=== PATIENT | male | born 1990 | race Caucasian/White ===

== ENCOUNTER → 2023-09-14 | Outpatient (REF) | payer OTHER ==
[2023-09-14 13:37] LABS: BASO # 0.1 10^3/uL (0.0-0.2); BASO % 1.2 % (0.0-1.0); EOS # 0.2 10^3/uL (0.0-0.5); EOS % 3.6 % (0.0-3.0); HEMATOCRIT 47.8 % (42.0-52.0); HEMOGLOBIN 16.2 g/dl (13.5-17.5); LYMPH % 30.1 % (24.0-44.0); MEAN CORPUSCULAR HEMOGLOBIN 29.1 pg (27.0-33.0); MEAN CORPUSCULAR HGB CONC 33.9 g/dl (32.0-36.5); MONO # 0.7 10^3/uL (0.0-0.8); NEUTROPHILS # 3.6 10^3/uL (1.5-8.5); NEUTROPHILS % 54.4 % (36.0-66.0); PLATELET COUNT, AUTOMATED 264 10^3/uL (150-450); RED BLOOD COUNT 5.56 10^6/uL (4.30-6.10); WHITE BLOOD COUNT 6.7 10^3/uL (4.0-10.0)
[2023-09-14 13:53] LABS: TOTAL 25(OH) VITAMIN D 27.8 NG/ML (20.0-100.0)
[2023-09-14 13:54] LABS: ALBUMIN 3.7 G/DL (3.2-5.2); ALKALINE PHOSPHATASE 94 U/L (46-116); ALT/SGPT 29 U/L (7.0-40); AST/SGOT 18 U/L (<34); BILIRUBIN,TOTAL 0.2 MG/DL (0.3-1.2); BLOOD UREA NITROGEN 18 MG/DL (9-23); CALCIUM LEVEL 9.2 MG/DL (8.5-10.1); CARBON DIOXIDE LEVEL 28 MMOL/L (20-31); CHLORIDE LEVEL 110 MMOL/L (98-107); CHOLESTEROL LEVEL 138 MG/DL (<200); CHOLESTEROL RISK RATIO 3.87 (<5); CREATININE FOR GFR 0.93 MG/DL (0.70-1.30); GLOMERULAR FILTRATION RATE > 60.0 (>60); GLUCOSE, FASTING 104 MG/DL (60-100); HDL CHOLESTEROL 35.6 MG/DL (>40); LDL CHOLESTEROL 77.8 MG/DL (<100); NON-HDL-C 102.4 MG/DL; POTASSIUM SERUM 4.7 MMOL/L (3.5-5.1); SODIUM LEVEL 142 MMOL/L (136-145); THYROID STIMULATING HORMONE 1.362 uIU/ML (0.55-4.78); TOTAL PROTEIN 6.7 G/DL (5.7-8.2); TRIGLYCERIDES LEVEL 123 MG/DL (<150)
== END ==
LOC: M LAB REF 13:12
PROVIDERS: ATTEND Nurse Practitioner Family
DX: E66.9 Obesity, unspecified (principal); E55.9 Vitamin D deficiency, unspecified

== ENCOUNTER 2025-03-23 15:14 | Day surgery (SDC) | payer OTHER ==
[~2025-03-23] VITALS: Ht 180.3 cm; Wt 108.6 kg
[2025-03-23] MEDS ORDERED: ROCURONIUM BROMIDE 50MG/5ML VIAL As Ordered ONE (17:45)
[2025-03-23] MEDS ORDERED: LIDOCAINE 2% 100 MG/5 ML SDV (FOR ANES.) As Ordered ONE (17:45)
[2025-03-23] MEDS ORDERED: MIDAZOLAM INJ 2 MG/2 ML VIAL As Ordered ONE (17:46)
[2025-03-23] MEDS ORDERED: ONDANSETRON 4MG/2ML VIAL As Ordered ONE (18:08)
[2025-03-23] MEDS ORDERED: dexAMETHasone 4 MG/ML 1 ML VIAL As Ordered ONE (18:08)
[2025-03-23] MEDS ORDERED: ACETAMINOPHEN 1000MG/100ML IV BAG As Ordered ONE (18:12)
[2025-03-23] MEDS ORDERED: SUGAMMADEX SODIUM 200 MG/2 ML VIAL As Ordered ONE (18:59)
[2025-03-23] MEDS ORDERED: KETOROLAC 30 MG/ML 1 ML VIAL As Ordered ONE (18:59)
[2025-03-23] MEDS ORDERED: MORPHINE 4 MG/ML 1 ML VIAL IV PRN ×2 (19:30)
[2025-03-23] MEDS ORDERED: MORPHINE 2 MG/ML 1 ML VIAL IV PRN (19:30)
[2025-03-23] MEDS ORDERED: ONDANSETRON 4MG TAB PO PRN (19:30)
[2025-03-23 20:00] VITALS: BP 116/73; TEMP 98.7; O2SAT 95
[2025-03-23] MEDS: NS (Normal Saline) 0.9% 1,000 ML IV SCH (20:25)
[2025-03-23] MEDS: PIPERACILLIN/TAZOBACTAM SOD 3.375 GM in DEXTROSE 5% (D5W) ADV/MINI-BAG 50 ML IV SCH (20:27)
[2025-03-23 20:30] VITALS: BP 120/67; TEMP 98.7; O2SAT 93
[2025-03-23 21:00] VITALS: BP 110/64; TEMP 98.6; O2SAT 93
[2025-03-23 22:00] VITALS: BP 114/67; TEMP 98.1; O2SAT 94
[2025-03-23 23:00] VITALS: BP 104/55; TEMP 97.5; O2SAT 95
[2025-03-24] VITALS: BP 94/50; TEMP 97.6; O2SAT 95
[2025-03-24 01:00] VITALS: BP 111/60; TEMP 98.2; O2SAT 95
[2025-03-24] MEDS: KETOROLAC 30 MG/ML 1 ML VIAL IV SCH (01:19)
[2025-03-24 04:00] VITALS: BP 95/56; TEMP 98.1; O2SAT 95
[2025-03-24 07:21] VITALS: BP 110/57; TEMP 97.6; O2SAT 98
[2025-03-24 08:05] VITALS: BP 110/57; TEMP 97.6; O2SAT 98
[2025-03-24] MEDS ORDERED: AUGM500T34 PO (10:26)
[2025-03-24 11:49] VITALS: BP 111/59; TEMP 97.8; O2SAT 98
== END 2025-03-24 12:32 | disposition home or self-care (01) ==
LOC: M SDC 15:14 → UNDOADMIN 16:07 → M OR 16:07 → M MS4PR 19:59 → UNDODISIN 03-24 12:32 → M SDC 03-24 12:32
PROVIDERS: ATTEND Surgery
DX: K35.891 Other acute appendicitis without perforation, with gangrene (principal); J45.909 Unspecified asthma, uncomplicated; K21.9 Gastro-esophageal reflux disease without esophagitis; R06.83 Snoring; F17.210 Nicotine dependence, cigarettes, uncomplicated; Z79.899 Other long term (current) drug therapy
CPT/HCPCS: 44970; 88304; 96365; 96366; 96376; J0131; J0665; J1100; J1885; J2250; J2405; J2543; J3010